=== PATIENT | female | born 1975 | race African-American/Black ===

== ENCOUNTER 2025-05-21 18:54 | Emergency (ER) | payer MEDICAID, OTHER ==
[~2025-05-21] VITALS: Ht 170.2 cm; Wt 59.0 kg
[2025-05-21 19:16] VITALS: O2SAT 100
[2025-05-21 21:42] LABS: BASOPHILS % 1.2 % (0.0-2.0); DIFFERENTIAL COMMENT 0; EOSINOPHILS % 3.1 % (0.0-5.0); HEMATOCRIT. 32.7 % (36.0-48.0); HEMOGLOBIN. 10.4 g/dL (12.0-16.0); LYMPHOCYTES % 31.2 % (20.0-50.0); MEAN CORPUSCULAR HEMOGLOBIN 23.6 pg (28.0-32.0); MEAN CORPUSCULAR HGB CONC 31.6 g/dL (31.0-37.0); MEAN CORPUSCULAR VOLUME 74.4 fL (81.0-99.0); MEAN PLATELET VOLUME 8.5 fl (7.4-10.4); MONOCYTES % 6.3 % (2.0-8.0); NEUTROPHILS % 58.2 % (40.0-76.0); PLATELET 226 x1000/uL (130-400); RED CELL DISTRIBUTION WIDTH 15.2 % (11.6-14.6); WHITE BLOOD COUNT 5.5 x1000/uL (4.5-11.0)
[2025-05-21 21:48] LABS: CARBON DIOXIDE 28 mEq/L (21-32); CHLORIDE 110 mEq/L (98-107); POTASSIUM 4.2 mEq/L (3.5-5.1); SODIUM 143 mEq/L (136-145)
[2025-05-21 21:49] LABS: CALCIUM 9.6 mg/dL (8.7-10.4)
[2025-05-21 21:50] LABS: PROTHROMBIN TIME 10.8 sec (9.6-11.0)
[2025-05-21 21:53] LABS: CREATININE 0.8 mg/dL (0.6-1.0)
[2025-05-21 21:54] LABS: GLUCOSE 131 mg/dL (70-105); TROPONIN I HIGH SENSITIVITY < 4 ng/L (3.0-34); UREA NITROGEN BLOOD 9 mg/dL (9-23)
[2025-05-21 21:55] LABS: ALANINE AMINOTRANSFERASE 11 IU/L (10-49); ALBUMIN 4.6 g/dL (3.2-4.8); ASPARTATE AMINOTRANSFERASE 26 IU/L (<34)
[2025-05-21 21:56] LABS: BILIRUBIN DIRECT 0.2 mg/dL (<=3.0); BILIRUBIN TOTAL 0.6 mg/dL (0.1-1.0); PROTEIN TOTAL 7.1 g/dL (6.0-8.3)
[2025-05-21] MEDS: ONDANSETRON 4MG ODT PO ONE (21:58)
[2025-05-21 22:03] LABS: CLARITY URINE CLOUDY (CLEAR); COLOR URINE YELLOW (YELLOW); GLUCOSE URINE NEGATIVE (NEGATIVE); KETONES URINE 1+ (NEGATIVE); LEUKOCYTE ESTERASE URINE 2+ (NEGATIVE); NITRITE URINE POSITIVE (NEGATIVE); OCCULT BLOOD URINE NEGATIVE (NEGATIVE); PROTEIN URINE TRACE (NEGATIVE); SPECIFIC GRAVITY URINE 1.024 (1.005-1.030)
[2025-05-21 22:16] LABS: BACTERIA URINE 4+; RBC URINE 0-2 /hpf (0-2); SQUAMOUS EPITHELIAL CELL URINE 1+ /lpf (RARE/1+)
[2025-05-21] MEDS ORDERED: NITR100C MT (22:43)
[2025-05-21 22:48] VITALS: BP 131/75; PULSE 69; RESP 18; TEMP 36.7; O2SAT 98
== END 2025-05-21 22:55 | disposition home or self-care (01) ==
LOC: ER 18:54
DX: R55 Syncope and collapse (principal); N39.0 Urinary tract infection, site not specified; R11.2 Nausea with vomiting, unspecified; R42 Dizziness and giddiness; D57.1 Sickle-cell disease without crisis; J45.909 Unspecified asthma, uncomplicated; Z79.899 Other long term (current) drug therapy
CPT/HCPCS: 99285; 71045; 80076; 80048; 81003; 83880; 83690; 85025; 85610; 84484; 36415; 93005; Q0162

== ENCOUNTER 2025-08-20 19:51 | Emergency (ER) | payer MEDICAID ==
[~2025-08-20] VITALS: Ht 170.2 cm; Wt 51.2 kg
[~2025-08-20 19:51] MED LIST: NITR100C MT
[2025-08-20 20:10] VITALS: O2SAT 99
[2025-08-20 20:15] VITALS: TEMP 36.9
[2025-08-20 20:43] LABS: BASOPHILS % 1.4 % (0.0-2.0); EOSINOPHILS % 2.9 % (0.0-5.0); HEMATOCRIT. 32.5 % (36.0-48.0); HEMOGLOBIN. 10.3 g/dL (12.0-16.0); LYMPHOCYTES % 38.3 % (20.0-50.0); MEAN PLATELET VOLUME 8.5 fl (7.4-10.4); MONOCYTES % 7.7 % (2.0-8.0); NEUTROPHILS % 49.7 % (40.0-76.0); PLATELET 236 x1000/uL (130-400); RED BLOOD CELL COUNT 4.35 mill/uL (4.2-5.4); RED CELL DISTRIBUTION WIDTH 14.8 % (11.6-14.6)
[2025-08-20] MEDS: ONDANSETRON 4MG ODT PO ONE (20:48)
[2025-08-20 20:52] LABS: CREATININE 0.8 mg/dL (0.6-1.0); UREA NITROGEN BLOOD 6 mg/dL (9-23)
[2025-08-20 21:08] LABS: CLARITY URINE CLOUDY (CLEAR); COLOR URINE YELLOW (YELLOW); GLUCOSE URINE NEGATIVE (NEGATIVE); KETONES URINE NEGATIVE (NEGATIVE); LEUKOCYTE ESTERASE URINE 3+ (NEGATIVE); NITRITE URINE POSITIVE (NEGATIVE); OCCULT BLOOD URINE NEGATIVE (NEGATIVE); PH URINE 6.0 (4.5-8.0); PROTEIN URINE NEGATIVE (NEGATIVE); SPECIFIC GRAVITY URINE 1.011 (1.005-1.030); UROBILINOGEN URINE 1.0 E.U./dL (0.2-1.0)
[2025-08-20 21:24] LABS: SQUAMOUS EPITHELIAL CELL URINE 3+ /lpf (RARE/1+)
[2025-08-20 21:26] LABS: MUCUS URINE 2+ /lpf (< = 2+); WBC URINE 25-50 /hpf (0-2)
[2025-08-20 21:27] LABS: BACTERIA URINE 1+; RBC URINE 0-2 /hpf (0-2)
[2025-08-20] MEDS ORDERED: IBUP-2028 MT (21:32)
[2025-08-20] MEDS ORDERED: SULF1TAB48 MT (21:32)
[2025-08-20 21:44] VITALS: BP 129/65; PULSE 75; RESP 16; O2SAT 100
== END 2025-08-20 21:45 | disposition home or self-care (01) ==
LOC: ER 19:51
DX: N39.0 Urinary tract infection, site not specified (principal); D57.1 Sickle-cell disease without crisis; J45.909 Unspecified asthma, uncomplicated; Z55.6 Problems related to health literacy
CPT/HCPCS: 99283; 80048; 81003; 81025; 83690; 85025; 87086; 87186; 87077; 36415; Q0162